=== PATIENT | female | born 1985 | race Two or more races ===

== ENCOUNTER 2023-11-14 06:32 | Day surgery (SDC) | payer OTHER, SELFPAY ==
[2023-11-14] VITALS (14 sets, daily range): BP systolic 93–110; BP diastolic 41–66; BMI 23.5
[2023-11-14] MEDS: CELEBREX 200 MG PO (09:19)
[2023-11-14] MEDS: TYLENOL 1000 MG PO (09:19)
[2023-11-14] MEDS: TRANSDERM-SCOP 1 PATCH TRANSDERM (09:19)
[2023-11-14] MEDS: HEPARIN 5000 UNITS SC (09:20)
[2023-11-14] MEDS: NORMOSOL-R 1000 IV (09:22)
[2023-11-14] MEDS: NEURONTIN 300 MG PO (09:41)
[2023-11-14] MEDS: DILAUDID 0.25 MG IV (14:36)
[2023-11-14] MEDS: COMPAZINE 5 MG IV (14:40)
[2023-11-14] MEDS: DEMEROL 12.5 MG IV (15:31)
[2023-11-14] MEDS: TYLENOL 650 MG PO (16:27)
== END 2023-11-14 17:25 | disposition home or self-care (01) ==
LOC: SDS 06:32
PROVIDERS: ATTENDING PHYSICIAN Obstetrics & Gynecology Gynecologic Oncology; FAMILY PHYSICIAN Family Medicine
DX: N80.121 Deep endometriosis of right ovary (principal); D25.9 Leiomyoma of uterus, unspecified; N80.549 Endometriosis of the appendix, unspecified depth; R97.1 Elevated cancer antigen 125 [CA 125]
CPT/HCPCS: 58571; 49321; 44970; 58662; 88304; 88305; 88307; 88332; 86850; 86900; 86901; 88112; 88331; 88342; C9250